=== PATIENT | female | born 1955 | race Caucasian/White ===

== ENCOUNTER 2020-01-04 06:20 | Day surgery (SDC) | payer MEDICARE ==
[~2020-01-04] VITALS: Ht 154.9 cm; Wt 84.8 kg
[~2020-01-04 06:20] MED LIST: ALPRAZOLAM ER0.5 MG PO; FOLIC ACID1 MG PO; KAPSPARGO SPRI100 MG PO; LIPITOR20 MG PO; VERAPAMIL ER240 M1 PO; VITAMIN B-1250 MCG PO; VITAMIN D250 MC1 PO
--- NOTE | 2020-01-04 08:12 | NUR ---
PT ALERT, ORIENTED AND RATHER QUIET. PT HAS HAD PREVIOUS SCOPE AND I SENSED SHE WAS RELIEVED WHEN SHE COULD VISIT WITH DR RITCHIE IN SCOPE RM. ALL OTHER QUESTIONS ASKED WERE ANSWERED. ARABELLA MAGAÑA IN TO TAKE PT, GAVE BLESSING
--- NOTE | 2020-01-04 08:20 | NUR ---
01/04/20 0820 Magda Rod 0815 PATIENT ARRIVES TO PACU AWAKE. RESP EVEN AND UNLABORED, NC AT 3 LITERS, TURNED OFF ON ARRIVAL TO PACU. PATIENT DENIES PAIN OR NAUSEA.
--- NOTE | 2020-01-07 09:09 | OR ---
[facility] [address], [place] [address] Signed DATE OF OPERATION: 01/04/2020 SURGEON: Linh Ritchie MD PREOPERATIVE DIAGNOSIS: History of tubular adenoma in 2011. POSTOPERATIVE DIAGNOSES: 1. Pandiverticulosis. 2. Polyps x2. PROCEDURES: 1. Perianal chronic inflammatory changes with excoriation, probable pruritus ani secondarily. 2. Total colonoscopy to cecum with cold morcellation polypectomy of cecal polyp and cold snare polypectomy of left colon polyp at 45 cm with application of hemoclip. ANESTHESIA: Intravenous sedation, fentanyl 100 mcg and Versed 9 mg, and preoperative antibiotic Ancef 2 g. INDICATIONS: This 64-year-old white woman is a patient of Dr. Ervin Johnston and underwent colonoscopy by hi in 2011, at which time she underwent excision of a tubular adenoma. She was recommended to have surveillance far sooner than this, but did not wish to proceed with that. She is generally symptom-free. She has no family history of colon cancer. She is admitted at this time to undergo colonoscopy. She understands the risks of bleeding, infection, and perforation. She has had joint replacement of shoulder. Preoperative antibiotic Ancef is administered as well. FINDINGS: The prep was excellent. Complete colonoscopy was undertaken of the cecum. There were numerous diverticula throughout the colon. There were two polyps, both some rather small one in the cecum, the other at the at 45 cm, both were excised completely. Additionally, she had perianal excoriation and chronic dermatitis of the perianal skin suggestive of pruritus ani. DESCRIPTION OF PROCEDURE: The patient was brought to the endoscopy suite and placed in lateral decubitus position given intravenous sedation to the point of slurred speech and nystagmus. Preoperative Electronically Signed By: LINH RITCHIE MD 01/07/20 0909 PATIENT NAME: SHENG BRIGGS OPERATIVE REPORT DATE OF : 57 REPORT #: [id number] PHYSICIAN: LINH RITCHIE MD PCP: SHARON DERAS MD REPORT IS CONFIDENTIAL AND NOT TO BE RELEASED WITHOUT AUTHORIZATION [facility] [address], [place] [address] Signed antibiotic Ancef was given. She was given intravenous sedation with full cardiopulmonary monitoring. Digital rectal examination undertaken as well as visual inspection showing excoriation of the skin in the perianal area and chronic inflammation. Perianal skin suggestive of pruritus ani. External hemorrhoidal changes were noted as well. Photograph was taken. An Olympus video colonoscope was then passed in the rectum, manipulated throughout the colon, ultimately intubating the cecum without problem. Numerous diverticula were seen upon passage of the scope. In the cecum, there was a small adenomatous-appearing polyp, which was excised with cold morcellation technique. The scope was withdrawn from that point. Examination throughout showed only diverticulosis, but at 45 cm from the anal verge was a sessile polyp, larger than the previous. This was excised with cold morcellation technique. Hemoclip was applied to assure hemostasis. The scope was further withdrawn. Remaining colon was normal except for diverticulosis. Retroflexed view showed no abnormality. Re-examination of perianal area confirmed the external hemorrhoidal disease and excoriation. CONCLUDING DIAGNOSES: 1. Polyps x2 and diverticulosis. 2. Perianal excoriation. PLAN: Recommend Citrucel or a high-fiber diet regarding diverticulosis. We will prescribe Lotrisone ointment for perianal evaluation. She will return to the ongoing care of Dr. Johnston and is following her on the perianal problem. I would recommend repeat colonoscopy in 5 years or sooner if symptoms should occur. MD SENG Cagle/BHUMIKAL /[id number] Copies: ~ Electronically Signed By: LINH RITCHIE MD 01/07/20 0909 PATIENT NAME: SHENG BRIGGS OPERATIVE REPORT DATE OF : 57 REPORT #: [id number] PHYSICIAN: LINH RITCHIE MD PCP: SHARON DERAS MD REPORT IS CONFIDENTIAL AND NOT TO BE RELEASED WITHOUT AUTHORIZATION
--- NOTE | 2020-01-07 14:04 | PATH ---
[facility] [address] [facility] [place], [place] [address] Signed SPECIMEN(S): A CECAL POLYP SPECIMEN(S): B DESCENDING POLYP AT 45 CM SPECIMEN SOURCE: A. CECAL POLYP B. DESCENDING POLYP AT 45 CM CLINICAL HISTORY: Hx polyps. MICROSCOPIC DESCRIPTION: Histologic sections of all submitted blocks are examined by light microscopy. These findings, together with the gross examination, support the pathologic diagnosis. FINAL PATHOLOGIC DIAGNOSIS: A. Colon, cecum, polyp, polypectomy: - Tubular adenoma. - Negative for high-grade dysplasia or malignancy. B. Colon, descending, polyp at 45 cm, polypectomy: - Fragments of tubulovillous adenoma. - Negative for high-grade dysplasia or malignancy. NAL:caw:C2NR GROSS DESCRIPTION: Two specimens are received in two containers, labeled "LP." A. The specimen, labeled "LP, cecal polyp," is received in formalin and consists of one frye soft tissue fragment(s) that measure 0.2 cm in greatest dimension. The specimen is entirely submitted in cassette (A1). B. The specimen, labeled "LP, descending colon polyp at 45 cm," is received in formalin and consists of two frye soft tissue fragment(s) that measure 0.2 cm in greatest dimension. The specimen is entirely submitted in cassette (B1). JS (under the direct supervision of a pathologist) The Gross Description was prepared using a voice recognition system. The report was reviewed for accuracy; however, sound-alike word errors, addition and/or deletions may occur. If there is any question about this report, please contact Client Services. PERFORMING LABORATORY: The technical component was performed by [employer], Amparo Long, PATIENT NAME: SHENG BRIGGS PATHOLOGY DATE OF : 57 REPORT #: [id number] PHYSICIAN: ARCELIA PATHOLOGY PCP: SHARON DERAS MD REPORT IS CONFIDENTIAL AND NOT TO BE RELEASED WITHOUT AUTHORIZATION [facility] [address] [place], [place] [address] [place] [address] (Catalogue Clerk: Kathie Pascal MD; CLIA# [id number]). Professional interpretation was performed by [facility], [address] [address] (CLIA# [id number]). Diagnostician: Devika Polanco MD Pathologist Electronically Signed 01/07/2020 Copies: ~ PATIENT NAME: SHENG BRIGGS PATHOLOGY DATE OF : 57 REPORT #: [id number] PHYSICIAN: ARCELIA PATINO PCP: SHARON DERAS MD REPORT IS CONFIDENTIAL AND NOT TO BE RELEASED WITHOUT AUTHORIZATION
== END 2020-01-04 08:50 | disposition home or self-care (01) ==
LOC: OPS 06:20 → DS 06:20 → OPS 06:45
PROVIDERS: ATTEND Surgery
PROC: 0DBM8ZZ Excision of Descending Colon, Via Natural or Artificial Opening Endoscopic (ICD-10-PCS; 2020-01-04)
PROC: 0DBH8ZZ Excision of Cecum, Via Natural or Artificial Opening Endoscopic (ICD-10-PCS; principal; 2020-01-04 06:45)
DX: Z12.11 Encounter for screening for malignant neoplasm of colon (principal); D12.4 Benign neoplasm of descending colon; D12.0 Benign neoplasm of cecum; K57.30 Diverticulosis of large intestine without perforation or abscess without bleeding; K64.4 Residual hemorrhoidal skin tags; I10 Essential (primary) hypertension; Z86.010 Personal history of colon polyps; Z88.2 Allergy status to sulfonamides; Z79.899 Other long term (current) drug therapy
CPT/HCPCS: 99153; G0500; J0690; J2250; J3010; J7121

== ENCOUNTER 2023-03-11 20:16 | Emergency (ER) | payer MEDICARE, OTHER ==
[~2023-03-11] VITALS: Ht 154.9 cm; Wt 80.0 kg
--- OUTSIDE RECORDS SUMMARY | 2023-03-11 20:19 | XMS ---
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 ETiesha VISIT COUNT (12 MO.) 1 FRANKIE Casarez TOTAL 1 NOTE: Visits indicate total known visits. ED/UCC VISIT TRACKING (12 MO.) 03/11/2023 20:16 FRANKIE Sorensen OR TYPE: Emergency COMPLAINT: - STROKE SYMPTOMS INPATIENT VISIT TRACKING (12 MO.) No inpatient visits to display in this time frame [email or web address]
[2023-03-11 20:28] LABS: HEMOGLOBIN 12.3 g/dL (12.0-18.0); RBC 3.59 M/ul (4.3-5.7)
[2023-03-11 20:33] LABS: BASOPHILS 0.6 % (0-2); HEMATOCRIT 36.5 % (35.0-50.0); LYMPHOCYTES 8.1 % (24-44); MCH 34.2 (27-36); MCHC 33.7 g/dl (30-36); MCV 101.6 fl (81-99); MONOCYTES 8.1 % (0-12); NEUTROPHILS 83.2 % (39-80); PLATELET COUNT 105 K/uL (140-440); RDW 14.7 (10.5-15.0)
[2023-03-11 20:46] LABS: ALBUMIN 3.6 g/dL (3.4-5.0); ALBUMIN/GLOBULIN RATIO 0.88 (1.1-2.4); ANION GAP 16.3 (7-21); BILIRUBIN, TOTAL 1.8 ng/dL (0.2-1.0); BUN/CREATININE RATIO 16.07 (6.0-28.6); CREATININE, SERUM 0.56 mg/dL (0.55-1.02); POTASSIUM 3.3 mmol/L (3.5-5.1); PROTEIN, TOTAL 7.7 g/dL (6.4-8.2)
[2023-03-11 20:49] LABS: PARTIAL THROMBOPLASTIN TIME 25.3 Sec (22.9-41.3)
[2023-03-11 20:50] LABS: INR 1.15 (0.80-1.30); PROTIME 14.2 Sec (11.2-14.2)
[2023-03-11 21:22] LABS: AMPHETAMINES, URINE NEGATIVE (NEGATIVE); BARBITURATES, URINE NEGATIVE (NEGATIVE); BENZODIAZEPINE, URINE POSITIVE (NEGATIVE); BUPRENORPHINE, URINE NEGATIVE (NEGATIVE); CANNABINOID, URINE NEGATIVE (NEGATIVE); COCAINE, URINE NEGATIVE (NEGATIVE); ECSTASY, URINE NEGATIVE (NEGATIVE); FENTANYL, URINE POSITIVE (NEGATIVE); METHADONE, URINE NEGATIVE (NEGATIVE); OPIATES, URINE NEGATIVE (NEGATIVE); OXYCODONE, URINE NEGATIVE (NEGATIVE); PHENCYCLIDINE, URINE NEGATIVE (NEGATIVE)
[2023-03-11 22:42] VITALS: BP 129/67
--- NOTE | 2023-03-11 22:53 | EKG ---
[facility] [address] [facility] [place] [address] Signed Sinus tachycardia Nonspecific ST and T wave abnormality Abnormal ECG No previous ECGs available Confirmed by Herbert García MD () on 03/11/2023 10:53:37 PM Electronically Signed By: HERBERT GARCÍA MD 03/11/232252 PATIENT NAME: SHENG BRIGGS Electrocardiogram DATE OF : 57 PHYSICIAN: HERBERT GARCÍA MD REPORT #: [id number] REPORT IS CONFIDENTIAL AND NOT TO BE RELEASED WITHOUT AUTHORIZATION
[2023-03-11 23:09] LABS: INFLUENZA B NAA NEGATIVE (NEGATIVE); RESPIRATORY SYNCYTIAL VIR NAA NEGATIVE (NEGATIVE)
== END 2023-03-11 22:42 | disposition short-term general hospital (02) ==
LOC: ED 20:16
PROVIDERS: Family Medicine
DX: S06.5XAA Traumatic subdural hemorrhage with loss of consciousness status unknown, initial encounter (principal); S06.A1XA Traumatic brain compression with herniation, initial encounter; W19.XXXA Unspecified fall, initial encounter; F17.200 Nicotine dependence, unspecified, uncomplicated; Z11.52 Encounter for screening for COVID-19; Z88.2 Allergy status to sulfonamides; Z79.899 Other long term (current) drug therapy; Z20.822 Contact with and (suspected) exposure to COVID-19
CPT/HCPCS: 36415; 36556; 51702; 70450; 71045; 71260; 72125; 73030; 74177; 80053; 80307; 82140; 84484; 85025; 85060; 85610; 85730; 87502; 93005; 93010; 99285-25; C9803; J1953; J2704; J7060; J7131; Q9967; U0002